=== PATIENT | male | born 1950 | race Caucasian/White ===

== ENCOUNTER 2021-06-17 09:56 | Observation (INO) ==
[2021-06-17 10:28] LABS: Hematocrit 44 % (42-52); Hemoglobin 15.1 g/dL (14.0-18.0); Mean Corpuscular HGB Conc 35 g/dL (31-36); Mean Corpuscular Hemoglobin 31 pg (27-31); Mean Corpuscular Volume 91 fL (80-94); Mean Platelet Volume 8.5 fL (7.4-10.4); Platelet Count 213 10^3/uL (150-450); Red Blood Count 4.82 10^6 /uL (4.18-5.48); Red Cell Distribution Width 13 % (10-15); White Blood Count 5.6 10^3/uL (3.5-10.8)
[2021-06-17 10:29] LABS: ABS Eosinophils 0.1 10^3/ul (0-0.6); ABS Lymphocytes 0.9 10^3/ul (1.0-4.8); ABS Monocytes 0.4 10^3/ul (0-0.8); ABS Neutrophils 4.2 10^3/ul (1.5-7.7); Eosinophil % 2.3 %; Lymphocyte % 16.1 %
[2021-06-17] MEDS ORDERED: Iodixanol (CONTRAST) 320 MG/ML 100 ML SDV IV ONE (10:31)
[2021-06-17 10:34] LABS: Activated Partial Thrombo Time 30.1 seconds (26.0-38.0); INR 1.07 (0.86-1.15)
[2021-06-17 10:45] LABS: Albumin 4.3 g/dL (3.2-5.2); Albumin/Globulin Ratio 1.4 (1-3); Calcium 9.5 mg/dL (8.6-10.3); Globulin 3.1 g/dL (2-4); HDL Cholesterol 49.2 mg/dL; Total Bilirubin 0.7 mg/dL (0.2-1.0); Total Protein 7.4 g/dL (6.4-8.9)
[2021-06-17] MEDS ORDERED: Enoxaparin 40 MG/0.4 ML SYR SUBCUT SCH (15:00)
[2021-06-17 16:02] LABS: Rapid COVID-19 Molecular Undetected (Undetected)
[2021-06-18 08:24] VITALS: BP 146/83
[2021-06-18] MEDS ORDERED: Aspirin EC 81 mg TAB.EC (enteric coated) PO SCH (09:00)
== END 2021-06-18 09:05 | disposition home or self-care (01) ==
LOC: EDHOLD 09:56 → ED 09:56 → SUATTDRO 14:06 → MEDTELE 16:33
PROVIDERS: ADMIT Internal Medicine; ATTEND Internal Medicine